=== PATIENT | male | born 1975 | race Caucasian/White ===

== ENCOUNTER 2017-02-09 20:21 | Emergency (ER) | payer OTHER ==
[~2017-02-09] VITALS: Ht 190.5 cm; Wt 145.9 kg
[~2017-02-09 20:21] MED LIST: NAPROSYN500 MG PO; NORCO 5/3251 TABLET PO; TACTINAL500 M1 PO; [UNRECOGNIZED DRUG - REMARK]
[2017-02-09 22:27] VITALS: BP 00/00
== END 2017-02-09 22:29 | disposition home or self-care (01) ==
LOC: EME 20:21 → EXP 20:21
DX: S83.92XA Sprain of unspecified site of left knee, initial encounter (principal); X58.XXXA Exposure to other specified factors, initial encounter; Y93.01 Activity, walking, marching and hiking; Y92.008 Other place in unspecified non-institutional (private) residence as the place of occurrence of the external cause
CPT/HCPCS: 73564; 99281; 99283

== ENCOUNTER 2017-02-10 14:48 | Emergency (ER) | payer OTHER | END 2017-02-10 15:34 | disposition left against medical advice (07) | LOC: EME 14:48 | DX: Z51.89 Encounter for other specified aftercare (principal); Z53.21 Procedure and treatment not carried out due to patient leaving prior to being seen by health care provider ==